=== PATIENT | female | born 1980 ===

== ENCOUNTER 2017-07-19 14:38 | Inpatient (IN) ==
[2017-07-19] MEDS ORDERED: CEFTAROLINE 600 MG in SODIUM CHLORIDE 0.9% 100 ML IV STA ×2 (15:57→16:50)
[2017-07-19 16:11] LABS: Basophils # 0.1 10*3/uL (0.0-0.2); Basophils % 0.3 % (0.0-0.8); Eosinophils % 0.1 % (0.00-10.9); Hemoglobin 12.9 GM/DL (12.0-16.0); Immature Granulocytes % 0.6 %; Immature Granulocytes Absolute 0.09 #; Lymphocytes # 2.6 10*3/uL (1.4-4.0); Lymphocytes % 16.5 % (21.3-54.2); Mean Corpuscular HGB Conc 34.9 GM/DL (32-36); Mean Corpuscular Hemoglobin 30 PG (27-34); Mean Corpuscular Volume 86.9 FL (87-102); Mean Platelet Volume 10.7 FL (9.6-12.0); Monocytes # 1.1 10*3/uL (0.11-0.8); Monocytes % 7.1 % (1.7-12.7); Neutrophils % 75.4 % (38.7-73.9); Platelet Count 296 T/CUMM (130-400); Red Blood Count 4.26 MC/CUMM (3.8-5.5); Red Cell Distribution Width 12.6 % (9.3-17.3); White Blood Count 15.9 T/CUMM (4-12)
[2017-07-19] MEDS ORDERED: CEFTAROLINE 600 MG in SODIUM CHLORIDE 0.9% 50 ML IV STA (16:39)
[2017-07-19 16:52] LABS: Albumin 3.4 G/DL (3.4-5.0); Bilirubin,Total 0.6 MG/DL (0.2-1.0); Calcium 8.5 MG/DL (8.5-10.1); Osmolality,Calculated 276.4 MOS/KG (273-304); Potassium 4.2 MMOL/L (3.5-5.1); Total Protein 7.7 G/DL (6.4-8.3)
[2017-07-19 17:09] LABS: Apearance,Urine CLOUDY (Clear); Bacteria,Urine Occasional /HPF (Few); Bilirubin,Urine Negative (Negative); Blood, Urine Negative (Negative); Glucose,Urine (UA) >=500 mg/dL (Negative); Ketones,Urine 80 mg/dL (Negative); Mucus,Urine Occasional /LPF (Occasional); Nitrite,Urine Negative (Negative); Protein,Urine 30 MG/DL; RBC,Urine 5 /HPF (0-4); Squamous Epithelial Cell,Urine Few /HPF (0-10); Urine Color Yellow (Yellow); Urine Specific Gravity 1.035 (1.001-1.035); Urine Urobilinogen < 2.0 EU/DL (0.2-1.0); WBC,Urine 4 /HPF (0-6)
[2017-07-19] MEDS ORDERED: SODIUM CHLORIDE 0.9% 1,000 ML IV STA (17:20)
[2017-07-19] MEDS ORDERED: CLINDAMYCIN INJ 600 MG in PREMIX 1 EACH IV STA (17:20)
[2017-07-19] MEDS ORDERED: CLINDAMYCIN INJ 50 ML IV ONE (17:35)
[2017-07-19] MEDS ORDERED: KETOROLAC 30 MG/1 ML VIAL IV STA (19:20)
[2017-07-19] MEDS: MORPHINE 10 MG/1 ML VIAL IV PRN (19:35)
[2017-07-20] MEDS: MORPHINE 10 MG/1 ML VIAL IV PRN ×4 (01:10→21:15)
[2017-07-20] MEDS ORDERED: DEXTROSE 50% 25 GM/50 ML VIAL IV PRN (08:12)
[2017-07-20] MEDS ORDERED: GLUCAGON 1 MG VIAL IM PRN (08:12)
[2017-07-20] MEDS ORDERED: BUPIVACAINE 0.25% 50 ML VIAL ONE (09:44)
[2017-07-20] MEDS ORDERED: PROPOFOL 200 MG/20 ML VIAL IV ONE (11:03)
[2017-07-20] MEDS ORDERED: fentaNYL 100 MCG/2 ML VIAL ONE (11:03)
[2017-07-20] MEDS ORDERED: ONDANSETRON 4 MG/2 ML VIAL ONE ×2 (11:03→11:14)
[2017-07-20] MEDS ORDERED: MIDAZOLAM 2 MG/2 ML VIAL ONE (11:03)
[2017-07-20] MEDS ORDERED: SEVOFLURANE 1 UNIT/15 MINUTE INH ONE (11:03)
[2017-07-20] MEDS ORDERED: ONDANSETRON 4 MG/2 ML VIAL IV PRN (11:13)
[2017-07-20] MEDS: HYDROmorphone 2 MG/1 ML VIAL IV PRN ×2 (11:15→11:22)
[2017-07-20] MEDS: SODIUM CHLORIDE 0.9% 1,000 ML IV SCH ×4 (12:33→21:14)
[2017-07-20] MEDS: INSULIN REGULAR 100 UNIT/ML SUBCUT SCH ×3 (12:42→21:15)
[2017-07-21] MEDS: SODIUM CHLORIDE 0.9% 1,000 ML IV SCH ×3 (05:19→17:39)
[2017-07-21] MEDS: MORPHINE 10 MG/1 ML VIAL IV PRN ×2 (06:07→09:10)
[2017-07-21 07:21] LABS: Basophils % 0.2 % (0.0-0.8); Eosinophils # 0.3 10*3/uL (0.0-0.87); Eosinophils % 2.1 % (0.00-10.9); Hematocrit 32.3 VOL% (35.7-47.0); Hemoglobin 10.4 GM/DL (12.0-16.0); Immature Granulocytes % 0.6 %; Immature Granulocytes Absolute 0.07 #; Lymphocytes # 3.8 10*3/uL (1.4-4.0); Mean Corpuscular HGB Conc 32.2 GM/DL (32-36); Mean Corpuscular Hemoglobin 30 PG (27-34); Mean Corpuscular Volume 91.8 FL (87-102); Mean Platelet Volume 10.8 FL (9.6-12.0); Monocytes % 8.3 % (1.7-12.7); Neutrophils % 57.8 % (38.7-73.9); Platelet Count 267 T/CUMM (130-400); Red Blood Count 3.52 MC/CUMM (3.8-5.5); Red Cell Distribution Width 12.5 % (9.3-17.3); White Blood Count 12.2 T/CUMM (4-12)
[2017-07-21 07:53] LABS: Calcium 7.4 MG/DL (8.5-10.1); Osmolality,Calculated 273.1 MOS/KG (273-304); Potassium 4.1 MMOL/L (3.5-5.1)
[2017-07-21] MEDS: INSULIN REGULAR 100 UNIT/ML SUBCUT SCH ×3 (09:12→17:39)
[2017-07-21 11:57] VITALS: BP 132/73
[2017-07-21] MEDS ORDERED: SODIUM HYPOCHLORITE 0.25% IRRIG 473 ML BOTTLE TOP SCH (12:00)
== END 2017-07-21 16:30 | disposition home or self-care (01) | DRG 603 ==
LOC: N.ED 14:38 → N.EDINP 17:22 → N.3E 19:20
PROVIDERS: ADMIT Surgery; ATTEND Surgery